=== PATIENT | male | born 1980 | race Caucasian/White ===

== ENCOUNTER 2022-07-15 10:27 | Day surgery (SDC) | payer OTHER, SELFPAY ==
[2022-07-15 11:01] VITALS: BP 178/98; PULSE 80; RESP 18; TEMP 36.4; O2SAT 97; BMI 38.2
[2022-07-15] MEDS: Lactated Ringers 1,000 ML 15 ML IV ×2 (11:09→14:21)
--- NOTE | 2022-07-15 12:01 | HP.PCM_ITS ---
History and Physical Date of Admission: 07/15/22 Visit Reasons:?Update H&P Chief Complaint: update H&P exc back lipoma 07/15 Medical Research Scientist Required: No Is patient in pain?: No Allergies Penicillins Allergy (Severe, Verified 07/01/22 10:01) swelling, SOBvenom-honey bee [bee venom (honey bee)] Allergy (Verified 07/01/22 10:01) Anaphylaxisacetaminophen [From Percocet] Adverse Reaction (Intermediate, Verified 07/01/22 10:01) Otheroxycodone [From Percocet] Adverse Reaction (Intermediate, Verified 07/01/22 10:01) Othervicodin Adverse Reaction (Intermediate, Uncoded 07/01/22 10:01) Other Medications ascorbic acid (vitamin C) 1,000 mg capsule 1 g PO DAILY 07/01/22 [History Con firmed 07/01/22] lansoprazole 15 mg capsule,delayed release 15 mg PO DAILY PRN 07/01/22 [History Confirmed 07/01/22] metoprolol succinate 25 mg tablet,extended release 24 hr 50 mg PO DAILY 07/01/22 [History Confirmed 07/01/22] [facility] Medical History?(Updated 07/01/22 @ 09:59 by Avelina Noe) Back pain Right lower lobe pulmonary infiltrate Surgical History?(Updated 07/01/22 @ 09:59 by Avelina Noe) History of repair of anterior cruciate ligament of left knee History of repair of anterior cruciate ligament of right knee History of vasectomy Family History? Father Cancer ?? ? testicular Social History? Smoking Status:? Never smoker HPI HPI Surgical H&P: Yes HPI: Patient is a 42 y/o M I am following for an updated history and physical for an upcoming elective removal of a right scapular subcutaneous mass. Patient denies any recent hospitalizations or illnesses. He notes the mass has remained the same in size. 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 He denies any complications or side effects from anesthesia. Patient's previous history per Dr. Stafford: 42-year-old gentleman is referred by Dr. Mark Hardin for surgical consultation regarding a 9 cm right upper back subcutaneous mass.? A written compromise surgical consult recommendations will return to him.? The patient reminds me that I have seen him in the past for this lipoma but even at that point felt that it would require intraoperative removal.? I saw him in August 08, 2017.? He believes that the area is enlarging.? He works in the [employer].? He wears a vest and a heavy equipment belt.? It has been come increasingly symptomatic and uncomfortable.? He lifts weights routinely and this is problematic as well. ROS General General: No weight change, appetite, fatigue, colon cancer, breast cancer or weakness HEENT HEENT: No difficulty swallowing, eye injury, eye surgery, swollen glands or hoarseness Endo Endocrine: No thyroid disease, diabetes mellitus, thyroid cancer, Hair loss, heat intolerance or cold intolerance Skin Skin: No rash or changing moles Musc Musculoskeletal: No back problems, arthritis, rheumatoid arthritis, gout or joint pain Cardio Cardiovascular: Yes high blood pressure; No murmur, pacemaker, heart disease, atrial fibrillation, heart attack, heart stent, palpitations, shortness of breat with exertion or chest pain Psych Psychiatric: No depression, anxiety or hearing voices Resp Respiratory: No shortness of breath, No sleep apnea, No cough, No COPD, No asthma, No emphysema and No wheezing Gastro Gastrointestinal: No abdominal pain, No nausea or vomiting, No diarrhea, No constipation, No blood in stool, Yes acid reflux, No hemorrhoids, No ulcers, No gallbladder problem and No black,tarry stools Adi Hematologic: No blood thinners, No blood disorders, No bleeding, No anemia and No blood clots Neuro Neurologic: No system reviewed and no additional complaints, except as document ed, No as per HPI, No abnormal gait, No abnormal hearing, No abnormal movements, No abnormal speech, No behavioral changes, No burning sensations, No confusion, No convulsions, No disequilibrium, No dizziness, No localized weakness, No frequent falls, No headache(s), No lack of coordination, No loss of vision, No memory loss, No numbness, No other visual disturbances, No radicular pain, No restless legs, No sensory deficit, No syncope, No tingling, No tremor(s), No weakness and No other Exam Const General: cooperative, healthy appearing, comfortable and no acute distress [facility] Head: normal to inspection Eyes General: appearance normal, both eyes and all related structures Neck Neck: normal visual inspection Neck mass: No Resp Effort & Inspection: normal respiratory effort Auscultation: clear to auscultation bilaterally Cardio Rate: regular rate Rhythm: regular rhythm GI Inspection: normal to inspection Palpation: soft Auscultation: normal bowel sounds Musc Cervical Spine: normal cervical lordosis Skin Other: Right medial scapular back 11 x 10 cm firm subcutaneous mass with a deep fixation Neuro General: no focal motor deficits Extrem General: normal to inspection Psych Appearance: grossly normal Affect: normal affect Assessment and Plan Assessment and Plan (1) Lipoma of back: ?Status:?Acute ?Plan: Dr. Stafford will plan to perform an excision of a large, firm subcutaneous right scapular mass under general anesthesia with possible GABRIELLA drain placement. Procedure details, risks and benefits have been reviewed with the patient. Patient has had the opportunity to ask and have questions answered. Patient verbally understands and agrees with the plan. I have examined the patient and the H&P has been reviewed. There are no clinical changes since date of exam. Santy Stafford M.D., F.A.C.S.
[2022-07-15] MEDS: Clindamycin 900 MG/50 ML BAG 75 MG IV (12:18)
--- NOTE | 2022-07-15 12:25 | DCINST_ITS ---
Discharge Instructions Diet Discharge Diet: Light diet - advance as tolerated Activity Discharge Activity: May Not Drive (No driving today please.) and May Shower (May shower 1 day after any drains are removed) Dressing / Incision Call your doctor if your incision/area has: Continuous Slow Oozing and Increased Redness Call your doctor if you observe: Fever of 101 or Higher Follow Up Care Please Follow Up With: Santy Stafford MD When: Call [phone] for office appointment per 's instructions Test Results: Test results from this visit will be discussed in further detail at your follow- up appointment, if applicable. Discharge Plan Admission Attending Provider: Santy Stafford Primary Care Provider: Mark Hardin Discharge Orders/Prescriptions Prescriptions: No Action metoprolol succinate 25 mg tablet extended release 24 hr 50 mg PO DAILY Label Comments: TAKE 1 TABLET BY MOUTH WITH DINNER lansoprazole [Prevacid 24Hr] 15 mg capsule,delayed release(DR/EC) 15 mg PO DAILY PRN (Reason: GERD) ascorbic acid (vitamin C) 1,000 mg capsule 1 g PO DAILY multivitamin Tablet 1 tab PO DAILY Referrals / Follow Up: Mark Hardin MD [Primary Care Provider] - Disposition Disposition (needs filled in before D/C Order can be placed): Home, Self Care
--- NOTE | 2022-07-15 12:30 | LIP_PTH ---
PATIENT: LORI CANTRELL LOC: [facility] [place] U#:[id number] AGE/SX: 42/M ROOM: RE07/15/[address]: Dr. Santy Stafford MD : 1980 BED: DIS: 07/15/2022 SPEC #: [id number] RECD: 07/15/22 16:57 STATUS: AURY SEAN #: [id number] KATIUSKA: 07/15/22 12:[address]: Santy Stafford DEPT: SURGICAL PATHOLOGY RECD BY: Suha García ENTERED: 07/16/22 09:42 SP TYPE: LIPOMA OTHR DR: Dr. Lori Hardin MD Tissues: Soft tissues, NOS Procedures: Surgery Specimen Level III HEADER OPERATION: Excision of scapular back lipoma mass PRE-OP DIAGNOSIS: Lipoma of back TISSUE SUBMITTED: Right scapular lipoma (suture contreras lateral aspect of mass) MICROSCOPIC DIAGNOSIS Right scapular lipoma, excision: Mature adipose tissue, consistent with lipoma with focal area of fibrolipoma. GUSTAVO:lyric 07/19/2022 MICROSCOPIC DESCRIPTION Slides are reviewed. GROSS DESCRIPTION Received in fixative is one container labeled with the patient's name and designated right scapular lipoma, suture contreras lateral aspect of mass. The specimen consists of a piece of yellow adipose tissue measuring 12 x 10 x 5 cm. Only the lateral margin is identified which is inked orange. The rest of the margins are presumed margins and are inked as follows: anterior - yellow, posterior - black, superior - blue, inferior - green and medial - red. Sections reveal lugo-yellow adipose cut surfaces with focal area showing fibrous area. No area of hemorrhage, necrosis or cystic degeneration is seen. Silk Screen Painter sections are submitted in six cassettes as follows: 1 & 2 - perpendicular margin, 3-6 - safety representative sections (cassettes 5 & 6 also contain the lugo-white fibrous areas). / GUSTAVO:lyric 07/16/2022 TC:1 CPT: 25434
[2022-07-15] MEDS: Bupivacaine Mpf 0.5% 30 ML VIAL (12:48)
--- NOTE | 2022-07-15 13:47 | OP.PCM_ITS ---
Report of Operation Date of Procedure: 07/15/22 Pre-Operative Diagnosis: Large subcutaneous right scapular back subcutaneous ma ss Post-Operative Diagnosis: Same Surgery/Procedure Performed:: Excision right scapular back subcutaneous fibrous lipoma measuring 12 x 9 cm Description of Surgical Findings:: Timeout informed consent was obtained. 42-year-old gentleman was taken to the operating room underwent general tracheal ovation esthesia clindamycin 900 g were given intravenously he was placed prone on the table with careful shoulder roll and protection. The right scapular back was sterilely prepped and draped. A transverse incision was made over the lipomatous mass the skin was over 1/4 inch thick. The fibrous dense mass did not have a clean capsule. I use electrocautery tediously in the subcutaneous plane to resect at the margins of what I thought represented this mass. It was densely adherent to the dermis and to the muscular fascia. Use like cautery to dissected free from the muscular tissue. Laterally it appeared to extend somewhat deeper and I did not davonte it between the muscle fibers. Tediously carefully was able to completely resect the area. Hemostasis was obtained with electrocautery. A stab incision was made inferior and lateral to the wound and a 10 round GABRIELLA drain was placed. It was secured with 3-0 nylon. Then I completed the skin flaps with multiple interrupted 2-0 Vicryl sutures. Subdermal tissue was also approximated with the same. Skin edges approximated with simple sutures of 3-0 nylon. Telfa and bulky dry dressings applied. Sponge and instrument and needle counts were reported to surgically correct. Specimen subcutaneous mass. Drains 10 round GABRIELLA drain. Blood loss 20 cc. He was taken to the recovery area in satisfied condition without apparent complication Santy Stafford M.D., F.A.C.S. Surgeon: Santy Stafford Type of Anesthesia: General and Local Anesthesiologist: Pooaj Aquino
[2022-07-15 14:00] VITALS: BP 128/86; BP 178/98; PULSE 89; RESP 16; TEMP 36.4; O2SAT 95
[2022-07-15] MEDS: Ibuprofen 200 MG Tablet 600 MG PO (14:00)
[2022-07-15 14:15] VITALS: BP 129/92; BP 178/98; PULSE 85; RESP 16; O2SAT 91
[2022-07-15 14:30] VITALS: BP 129/92; BP 178/98; PULSE 81; RESP 16; O2SAT 91
[2022-07-15 14:40] VITALS: BP 130/92; BP 178/98; PULSE 83; RESP 16; TEMP 36.6; O2SAT 93
[2022-07-15 15:48] VITALS: BP 141/100; BP 178/98; PULSE 78; RESP 16; TEMP 36.1; O2SAT 95
--- NOTE | 2022-07-15 15:53 | SUR.PHASEII ---
instructed and demonstrated and pt how to empty nicole drain. both verbalized understanding.
== END 2022-07-15 15:55 | disposition home or self-care (01) ==
LOC: SDC 10:29 → AC 10:31
PROVIDERS: PCP Family Medicine; Referring Provider Surgery; Visit Provider Surgery
PROC: (CPT 21931; principal; 2022-07-15 12:15)
DX: D17.1 Benign lipomatous neoplasm of skin and subcutaneous tissue of trunk (principal); I10 Essential (primary) hypertension; K21.9 Gastro-esophageal reflux disease without esophagitis; Z79.899 Other long term (current) drug therapy
CPT/HCPCS: 21931; 00730; 88304; J7120; J2405

== ENCOUNTER → 2022-08-13 | Outpatient (CLI) | payer OTHER, SELFPAY ==
[2022-08-13 10:12] LABS: Hemoglobin 15.5 g/dL (13.0-16.5)
[2022-08-13 10:37] LABS: ALB/GLOB Ratio 1.1 RATIO (0.9-2.4); AST(SGOT) 22 U/L (15-37); Alanine Aminotransfer ALT/SGPT 55 U/L (16-61); Albumin, Serum 3.9 g/dL (3.2-5.0); Alkaline Phosphatase 67 U/L (45-117); Anion Gap 5 (5-15); BUN 12 mg/dL (7-18); BUN/Creat Ratio 11.7 RATIO (10-20); Calcium,Total 8.8 mg/dL (8.5-10.1); Chloride 106 mmol/L (98-107); Cholesterol 175 mg/dL (200); Creatinine, Serum 1.03 mg/dL (0.70-1.30); EST Glomerular Filtration Rate 84 mL/min (>60); Est Glom Filt Rate - Afr Amer 102 mL/min (>60); Globulin 3.5 g/dL (2.2-4.2); Glucose 94 mg/dL (74-106); High Density Lipoprotein 41 mg/dL; PSA,Total - Annual Screen 0.76 ng/mL (0.00-4.00); Potassium 3.4 mmol/L (3.5-5.1); Protein, Total 7.4 g/dL (6.4-8.2); Sodium Level 142 mmol/L (136-145); Triglycerides 121 mg/dL; Very Low Density Lipoprotein 24 mg/dL (5-40)
[2022-08-16 08:24] LABS: Follicle Stimulating Hormone 3.2 mIU/mL; Luteinizing Hormone 2.9 mIU/mL; Prolactin 6.5 ng/mL
[2022-08-18 13:08] LABS: Testosterone, Free 10.52 ng/dL (5.00-21.00)
[2022-08-18 20:36] LABS: Testosterone, % Free 2.54 % (1.50-4.20); Testosterone, Total 414 ng/dL (264-916)
== END | disposition home or self-care (01) ==
LOC: LAB 08:34
PROVIDERS: PCP Family Medicine; Referring Provider Registered Nurse; Visit Provider Registered Nurse
DX: Z00.00 Encounter for general adult medical examination without abnormal findings (principal); R53.83 Other fatigue; E29.1 Testicular hypofunction; Z12.5 Encounter for screening for malignant neoplasm of prostate; R68.82 Decreased libido; R63.5 Abnormal weight gain
CPT/HCPCS: 36415; 80053; 80061; 83001; 83002; 84146; 84153; 84402; 84403; 84443; 85014; 85018; G0103

== ENCOUNTER → 2022-08-17 | Outpatient (CLI) | payer OTHER, SELFPAY ==
[2022-08-17 10:17] LABS: Estradiol 48.8 pg/mL
[2022-08-18 20:31] LABS: Sex Hormone-binding Globulin 26.2 nmol/L (16.5-55.9)
== END | disposition home or self-care (01) ==
LOC: LAB 09:01
PROVIDERS: PCP Family Medicine; Referring Provider Registered Nurse; Visit Provider Registered Nurse
DX: Z00.00 Encounter for general adult medical examination without abnormal findings (principal); R68.82 Decreased libido; R63.5 Abnormal weight gain; E29.1 Testicular hypofunction; R53.83 Other fatigue; Z12.5 Encounter for screening for malignant neoplasm of prostate
CPT/HCPCS: 82670; 84270

== ENCOUNTER → 2023-12-14 | Outpatient (CLI) | payer OTHER, SELFPAY ==
[2023-12-14 10:26] LABS: Absolute Lymphocyte Count 1.71 X10^3/uL (0.83-4.51); Absolute Neutrophil Count 4.5 X10^3/uL (2.0-7.7); Basophil# 0.08 X10^3/uL; Basophil% 1.2 % (0-1); Eosinophil# 0.18 X10^3/uL; Eosinophils% 2.6 % (0-5); Hematocrit 46.4 % (40-54); Hemoglobin 15.9 g/dL (13.0-16.5); Lymphocyte # 1.71 X10^3/ul (0.83-4.51); Lymphocyte % 24.8 % (19-41); Mean Corp Hgb Conc 34.3 g/dL (32-36); Mean Corpuscular Hgb 29.1 pg (27.0-32.0); Mean Platelet Vol. 9.2 fl (6.2-12.0); Monocyte# 0.43 X10^3/uL; Monocyte% 6.2 % (0-10); NRBC Flagged by Analyzer 0 % (0-5); Neutrophil # 4.45 X10^3/uL (2.7-7.7); Neutrophil % 64.6 % (47-70); Platelet Count 270 K/mm3 (150-450); RBC Distribution Width SD 39.5 fl (35.1-43.9); Red Blood Count 5.46 M/mm3 (4.6-6.2); White Blood Count 6.9 K/mm3 (4.4-11.0)
[2023-12-14 11:16] LABS: ALB/GLOB Ratio 1.1 RATIO (0.9-2.4); AST(SGOT) 23 U/L (15-37); Alanine Aminotransfer ALT/SGPT 55 U/L (16-61); Albumin, Serum 3.9 g/dL (3.2-5.0); Alkaline Phosphatase 67 U/L (45-117); Anion Gap 9 (5-15); BUN 10 mg/dL (7-18); BUN/Creat Ratio 9.3 RATIO (10-20); Calcium,Total 8.7 mg/dL (8.5-10.1); Chloride 105 mmol/L (98-107); Cholesterol 178 mg/dL (200); Creatinine, Serum 1.08 mg/dL (0.70-1.30); EST Glomerular Filtration Rate 79 mL/min (>60); Est Glom Filt Rate - Afr Amer 96 mL/min (>60); Globulin 3.5 g/dL (2.2-4.2); Glucose 106 mg/dL (74-106); High Density Lipoprotein 36 mg/dL; Potassium 3.5 mmol/L (3.5-5.1); Protein, Total 7.4 g/dL (6.4-8.2); Sodium Level 141 mmol/L (136-145); Triglycerides 154 mg/dL; Very Low Density Lipoprotein 31 mg/dL (5-40)
== END | disposition home or self-care (01) ==
PROVIDERS: PCP Family Medicine; Visit Provider Family Medicine
DX: Z00.00 Encounter for general adult medical examination without abnormal findings (principal); I10 Essential (primary) hypertension; E66.9 Obesity, unspecified
CPT/HCPCS: 36415; 80053; 80061; 85025

== ENCOUNTER → 2024-06-15 | Outpatient (CLI) | payer OTHER, SELFPAY ==
[2024-06-15 15:55] LABS: Anion Gap 4 (5-15); BUN 14 mg/dL (7-18); BUN/Creat Ratio 13.5 RATIO (10-20); Calcium,Total 9.5 mg/dL (8.5-10.1); Chloride 103 mmol/L (98-107); Creatinine, Serum 1.04 mg/dL (0.70-1.30); EST Glomerular Filtration Rate 83 mL/min (>60); Est Glom Filt Rate - Afr Amer 100 mL/min (>60); Glucose 96 mg/dL (74-106); Potassium 3.9 mmol/L (3.5-5.1); Sodium Level 138 mmol/L (136-145)
[2024-06-15 16:26] LABS: Microalbumin,Random Urine < 5.0 mg/L (NO RANGE EST.)
== END | disposition home or self-care (01) ==
PROVIDERS: PCP Family Medicine; Referring Provider Family Medicine; Visit Provider Family Medicine
DX: I10 Essential (primary) hypertension (principal)
CPT/HCPCS: 36415; 80048; 82043; 82570